=== PATIENT | female | born 1995 | race American Indian/Alaskan Native ===

== ENCOUNTER 2019-05-04 00:05 | Emergency (ER) | payer BC ==
[~2019-05-04] VITALS: Ht 167.6 cm; Wt 87.0 kg
[2019-05-04 00:24] VITALS: BP 128/74
[2019-05-04] MEDS ORDERED: BACITRACIN ZINC OINT UDPKT TOP ONE (00:30)
== END 2019-05-04 02:00 | disposition home or self-care (01) ==
LOC: ER 00:05
DX: S80.212A Abrasion, left knee, initial encounter (principal); S80.211A Abrasion, right knee, initial encounter; Y35.893A Legal intervention involving other specified means, suspect injured, initial encounter; Y93.89 Activity, other specified; Y92.89 Other specified places as the place of occurrence of the external cause
CPT/HCPCS: 99283

== ENCOUNTER 2019-05-04 07:06 | Inpatient (IN) | payer BC, MEDICAID ==
[~2019-05-04] VITALS: Ht 167.6 cm; Wt 100.8 kg
[2019-05-04 09:04] LABS: BASOPHILS % 0.5 % (0.0-2.0); HEMATOCRIT. 36.4 % (36.0-48.0); HEMOGLOBIN. 12.2 g/dL (12.0-16.0); LYMPHOCYTES % 9.2 % (20.0-50.0); MEAN CORPUSCULAR HEMOGLOBIN 28.4 pg (28.0-32.0); MEAN CORPUSCULAR VOLUME 84.5 fL (81.0-99.0); MEAN PLATELET VOLUME 8.4 fl (7.4-10.4); MONOCYTES % 7.8 % (2.0-8.0); NEUTROPHILS % 82.5 % (40.0-76.0); PLATELET 333 x1000/uL (130-400); RED CELL DISTRIBUTION WIDTH 13.3 % (11.6-14.6)
[2019-05-04 09:14] LABS: CHLORIDE 108 mEq/L (98-107)
[2019-05-04 09:18] LABS: ETHANOL BLOOD < 10 mg/dL
[2019-05-04 09:53] LABS: CLARITY URINE TURBID (CLEAR); COLOR URINE YELLOW (YELLOW); KETONES URINE 1+ (NEGATIVE); LEUKOCYTE ESTERASE URINE NEGATIVE (NEGATIVE); NITRITE URINE NEGATIVE (NEGATIVE); OCCULT BLOOD URINE 3+ (NEGATIVE); PROTEIN URINE 2+ (NEGATIVE); SPECIFIC GRAVITY URINE 1.028 (1.005-1.030); UROBILINOGEN URINE 0.2 E.U./dL (0.2-1.0)
[2019-05-04 10:04] LABS: *AMPHETAMINES SCREEN URINE NEGATIVE (NEGATIVE); *BARBITURATES SCREEN URINE NEGATIVE (NEGATIVE); *BENZODIAZEPINES SCREEN URINE NEGATIVE (NEGATIVE); *COCAINE SCREEN URINE NEGATIVE (NEGATIVE); METHADONE URINE SCREEN NEGATIVE (NEGATIVE)
[2019-05-04 10:05] LABS: OPIATES URINE SCREEN NEGATIVE (NEGATIVE); PHENCYCLIDINE URINE SCREEN NEGATIVE (NEGATIVE)
[2019-05-04 10:07] LABS: CANNABINOID URINE SCREEN PRESUMTIVE POSITIVE (NEGATIVE)
[2019-05-04] MEDS ORDERED: LORAZEPAM 1MG TABLET PO ONE (14:15)
[2019-05-05] MEDS ORDERED: SODIUM CHLORIDE 0.9% 1,000 ML IV ONE ×4 (03:32→18:55)
[2019-05-05 18:28] LABS: CREATINE KINASE 26829 IU/L (26-192)
[2019-05-05 22:58] LABS: CLARITY URINE CLEAR (CLEAR); COLOR URINE YELLOW (YELLOW); KETONES URINE NEGATIVE (NEGATIVE); LEUKOCYTE ESTERASE URINE NEGATIVE (NEGATIVE); NITRITE URINE NEGATIVE (NEGATIVE); OCCULT BLOOD URINE NEGATIVE (NEGATIVE); PH URINE 6.5 (4.5-8.0); PROTEIN URINE NEGATIVE (NEGATIVE); SPECIFIC GRAVITY URINE 1.002 (1.005-1.030); UROBILINOGEN URINE 0.2 E.U./dL (0.2-1.0)
[2019-05-06] MEDS ORDERED: CLONIDINE 0.1MG TABLET PO PRN
[2019-05-06] MEDS ORDERED: ENOXAPARIN 40MG/0.4ML SYR SUBCUT SCH
[2019-05-06] MEDS ORDERED: HYDROCODONE/ACETAMINOPHEN 10/325MG TABLET PO PRN
[2019-05-06] MEDS ORDERED: ONDANSETRON HCL 4MG/2ML INJ IV PRN
[2019-05-06] MEDS ORDERED: GUAIFENESIN 200MG/10ML SUGAR FREE UDC PO PRN
[2019-05-06] MEDS ORDERED: HYDRALAZINE 20MG/ML VIAL IV PRN
[2019-05-06] MEDS ORDERED: ACETAMINOPHEN 325MG TABLET PO PRN
[2019-05-06] MEDS ORDERED: DIPHENHYDRAMINE 50MG/ML VIAL IV PRN
[2019-05-06] MEDS ORDERED: MAGNESIUM/ALUMINUM HYDROXIDE/SIMETHICONE 30ML UDC PO PRN
[2019-05-06] MEDS ORDERED: IPRATROPIUM/ALBUTEROL 0.5-3(2.5)MG/3ML NEB HHN PRN
[2019-05-06] MEDS ORDERED: DOCUSATE SODIUM 100MG CAPSULE PO PRN
[2019-05-06] MEDS ORDERED: MORPHINE SULFATE 2 MG/ML CPJ (NOT FOR IM USE) IV PRN
[2019-05-06] MEDS: SODIUM CHLORIDE 0.9% 1,000 ML IV SCH ×3 (02:04→15:50)
[2019-05-06] MEDS: SODIUM CHLORIDE 0.9% INJ 3ML FLUSH IVF SCH ×2 (06:00→15:30)
[2019-05-06 21:57] LABS: BASOPHILS % 0.6 % (0.0-2.0); EOSINOPHILS % 0.7 % (0.0-5.0); HEMATOCRIT. 35.7 % (36.0-48.0); HEMOGLOBIN. 12.2 g/dL (12.0-16.0); LYMPHOCYTES % 22.4 % (20.0-50.0); MEAN CORPUSCULAR HEMOGLOBIN 29.3 pg (28.0-32.0); MEAN CORPUSCULAR VOLUME 85.4 fL (81.0-99.0); MEAN PLATELET VOLUME 8.5 fl (7.4-10.4); NEUTROPHILS % 69.3 % (40.0-76.0); PLATELET 300 x1000/uL (130-400); RED BLOOD CELL COUNT 4.18 mill/uL (4.2-5.4); RED CELL DISTRIBUTION WIDTH 13.4 % (11.6-14.6)
[2019-05-06 22:05] LABS: CHLORIDE 109 mEq/L (98-107)
[2019-05-06 22:16] LABS: CREATINE KINASE MB FRACTION 22.1 ng/mL (0.5-3.6)
[2019-05-06 23:07] LABS: CREATINE KINASE 11191 IU/L (26-192)
[2019-05-07] MEDS ORDERED: SODIUM CHLORIDE 0.9% 1,000 ML IV ONE ×2 (03:30)
[2019-05-07 10:40] VITALS: BP 147/80
[2019-05-07 11:20] VITALS: BP 147/80
[2019-05-07] MEDS ORDERED: ENOXAPARIN 40MG/0.4ML SYR SUBCUT SCH (12:00)
[2019-05-07] MEDS ORDERED: POTASSIUM CHLORIDE 20MEQ TABLET SR PO NR (12:00)
[2019-05-07] MEDS ORDERED: HYDRALAZINE 10 MG in SODIUM CHLORIDE 0.9% 49.5 ML IV PRN (12:15)
[2019-05-07] MEDS: LORAZEPAM 2MG/ML CPJ IV PRN (12:26)
[2019-05-07 13:30] VITALS: BP 136/96
[2019-05-07] MEDS: SODIUM CHLORIDE 0.9% 1,000 ML IV SCH ×2 (15:50→23:12)
[2019-05-07 16:00] VITALS: BP 133/83
[2019-05-07 20:00] VITALS: BP 138/88
[2019-05-07] MEDS: SODIUM CHLORIDE 0.9% INJ 3ML FLUSH IVF SCH (21:35)
[2019-05-08] VITALS: BP 131/87
[2019-05-08 04:00] VITALS: BP 144/82
[2019-05-08] MEDS: SODIUM CHLORIDE 0.9% INJ 3ML FLUSH IVF SCH ×3 (05:21→22:00)
[2019-05-08] MEDS: SODIUM CHLORIDE 0.9% 1,000 ML IV SCH ×3 (07:55→23:30)
[2019-05-08 08:00] VITALS: BP 126/79
[2019-05-08 08:36] LABS: CHLORIDE 107 mEq/L (98-107)
[2019-05-08 08:47] LABS: CREATINE KINASE MB FRACTION 4.5 ng/mL (0.5-3.6)
[2019-05-08 08:57] LABS: CREATINE KINASE 2990 IU/L (26-192)
[2019-05-08] MEDS: ENOXAPARIN 30MG/0.3ML SYR SUBCUT SCH ×3 (09:00→21:00)
[2019-05-08] MEDS: OLANZAPINE 5MG TABLET PO SCH ×3 (10:00→17:00)
[2019-05-08] MEDS ORDERED: CEFTRIAXONE 1 G PREMIX 50 ML IV SCH (11:00)
[2019-05-08 12:00] VITALS: BP 120/81
[2019-05-08] MEDS ORDERED: CEFTRIAXONE 1 G PREMIX 50 ML IV NR (12:00)
[2019-05-08] MEDS ORDERED: CEFTRIAXONE 1,000 MG in DEXTROSE 5% WATER 50 ML IV SCH (13:00)
[2019-05-08 16:00] VITALS: BP 131/78
[2019-05-08 18:11] LABS: CLARITY URINE CLEAR (CLEAR); COLOR URINE YELLOW (YELLOW); KETONES URINE NEGATIVE (NEGATIVE); LEUKOCYTE ESTERASE URINE NEGATIVE (NEGATIVE); NITRITE URINE NEGATIVE (NEGATIVE); OCCULT BLOOD URINE 1+ (NEGATIVE); PROTEIN URINE NEGATIVE (NEGATIVE); SPECIFIC GRAVITY URINE 1.005 (1.005-1.030); UROBILINOGEN URINE 0.2 E.U./dL (0.2-1.0)
[2019-05-08 20:00] VITALS: BP 127/72
[2019-05-09] MEDS: LORAZEPAM 1MG TABLET PO PRN (01:03)
[2019-05-09] MEDS: SODIUM CHLORIDE 0.9% INJ 3ML FLUSH IVF SCH ×2 (05:40→21:53)
[2019-05-09 08:00] VITALS: BP 116/65
[2019-05-09] MEDS ORDERED: LORAZEPAM 2MG/ML CPJ IM PRN (08:00)
[2019-05-09] MEDS: ENOXAPARIN 30MG/0.3ML SYR SUBCUT SCH ×2 (09:00→20:28)
[2019-05-09] MEDS: OLANZAPINE 5MG TABLET PO SCH ×2 (09:00→17:00)
[2019-05-09] MEDS ORDERED: HEPARIN 100 UNITS/1 ML VIAL IVF PRN (11:30)
[2019-05-09 12:00] VITALS: BP 112/61
[2019-05-09 15:22] LABS: BASOPHILS % 0.4 % (0.0-2.0); EOSINOPHILS % 1.3 % (0.0-5.0); HEMATOCRIT. 35.8 % (36.0-48.0); LYMPHOCYTES % 15.9 % (20.0-50.0); MEAN CORPUSCULAR HEMOGLOBIN 28.5 pg (28.0-32.0); MEAN PLATELET VOLUME 8.5 fl (7.4-10.4); MONOCYTES % 5.9 % (2.0-8.0); NEUTROPHILS % 76.5 % (40.0-76.0); PLATELET 310 x1000/uL (130-400); RED CELL DISTRIBUTION WIDTH 13.2 % (11.6-14.6)
[2019-05-09] MEDS: CEFTRIAXONE 1,000 MG in DEXTROSE 5% WATER 50 ML IV SCH (15:28)
[2019-05-09 16:00] VITALS: BP 113/70
[2019-05-09 18:15] LABS: CHLORIDE 102 mEq/L (98-107)
[2019-05-09 18:23] LABS: HCG SCREEN NEGATIVE
[2019-05-09 18:24] LABS: CREATINE KINASE MB FRACTION 3.5 ng/mL (0.5-3.6)
[2019-05-09 18:34] LABS: CREATINE KINASE 1074 IU/L (26-192)
[2019-05-09 20:00] VITALS: BP 121/71
[2019-05-09] MEDS: SODIUM CHLORIDE 0.9% 1,000 ML IV SCH (20:30)
[2019-05-10] MEDS: SODIUM CHLORIDE 0.9% 1,000 ML IV SCH (07:50)
[2019-05-10] MEDS: OLANZAPINE 5MG TABLET PO SCH ×2 (08:52→17:13)
[2019-05-10] MEDS: ENOXAPARIN 30MG/0.3ML SYR SUBCUT SCH ×2 (08:53→21:00)
[2019-05-10] MEDS: LORAZEPAM 2MG/ML CPJ IV PRN ×2 (11:12→15:40)
[2019-05-10] MEDS: CEFTRIAXONE 1,000 MG in DEXTROSE 5% WATER 50 ML IV SCH (15:40)
[2019-05-11 07:00] VITALS: BP 111/59
[2019-05-11] MEDS: SODIUM CHLORIDE 0.9% 1,000 ML IV SCH ×2 (07:50→17:15)
[2019-05-11 08:00] VITALS: BP 104/51
[2019-05-11] MEDS: OLANZAPINE 5MG TABLET PO SCH ×3 (09:00→17:15)
[2019-05-11] MEDS: ENOXAPARIN 30MG/0.3ML SYR SUBCUT SCH ×3 (09:00→22:56)
[2019-05-11 14:00] VITALS: BP 94/55
[2019-05-11] MEDS: SODIUM CHLORIDE 0.9% INJ 3ML FLUSH IVF SCH (14:52)
[2019-05-11] MEDS: LORAZEPAM 1MG TABLET PO PRN (14:53)
[2019-05-11] MEDS ORDERED: CEFTRIAXONE 1 G PREMIX 50 ML IV SCH (15:00)
[2019-05-11 16:00] VITALS: BP 115/58
[2019-05-11 18:11] LABS: BASOPHILS % 0.9 % (0.0-2.0); EOSINOPHILS % 6.4 % (0.0-5.0); HEMATOCRIT. 35.1 % (36.0-48.0); HEMOGLOBIN. 11.6 g/dL (12.0-16.0); LYMPHOCYTES % 32.2 % (20.0-50.0); MEAN CORPUSCULAR HEMOGLOBIN 28.7 pg (28.0-32.0); MEAN CORPUSCULAR VOLUME 86.9 fL (81.0-99.0); MEAN PLATELET VOLUME 8.9 fl (7.4-10.4); MONOCYTES % 10.2 % (2.0-8.0); NEUTROPHILS % 50.3 % (40.0-76.0); PLATELET 251 x1000/uL (130-400); RED BLOOD CELL COUNT 4.04 mill/uL (4.2-5.4); RED CELL DISTRIBUTION WIDTH 13.5 % (11.6-14.6)
[2019-05-11 18:34] LABS: CHLORIDE 107 mEq/L (98-107)
[2019-05-11 18:43] LABS: CREATINE KINASE MB FRACTION 1.5 ng/mL (0.5-3.6)
[2019-05-11 18:45] LABS: CREATINE KINASE 313 IU/L (26-192)
[2019-05-11 19:09] LABS: HEPATITIS B SURFACE ANTIGEN NEGATIVE
[2019-05-11 19:39] LABS: HEPATITIS A AB IGM NEGATIVE (NEGATIVE)
[2019-05-11 20:00] VITALS: BP 107/52
[2019-05-12] VITALS: BP 112/52
[2019-05-12 00:42] VITALS: BP 116/72
== END 2019-05-12 01:12 | DRG 689 ==
LOC: ER 07:06 → EDBEDREQ 05-05 19:08 → EDBEDREQTM 05-05 22:31 → EDBEDREQ 05-05 22:31 → 6EST 05-07 07:05 → ENRESERV 05-07 07:33 → CANRESERV 05-07 07:33 → ENRESERV 05-07 10:17 → 6EST 05-07 11:54
PROVIDERS: ADMIT Internal Medicine; ATTEND Internal Medicine
PROC: 02HV33Z Insertion of Infusion Device into Superior Vena Cava, Percutaneous Approach (ICD-10-PCS; principal; 2019-05-09)
PROC: B5181ZA Fluoroscopy of Superior Vena Cava using Low Osmolar Contrast, Guidance (ICD-10-PCS; 2019-05-09)
DX: N39.0 Urinary tract infection, site not specified (principal); G93.41 Metabolic encephalopathy; M62.82 Rhabdomyolysis; F99 Mental disorder, not otherwise specified; E87.6 Hypokalemia; F41.9 Anxiety disorder, unspecified; S80.212A Abrasion, left knee, initial encounter; S80.211A Abrasion, right knee, initial encounter; S90.812A Abrasion, left foot, initial encounter; S90.811A Abrasion, right foot, initial encounter; X58.XXXA Exposure to other specified factors, initial encounter; Y93.89 Activity, other specified; Y92.89 Other specified places as the place of occurrence of the external cause; Y99.8 Other external cause status
CPT/HCPCS: 36415; 36573; 71045; 76937; 80048; 80053; 80305; 80320; 81003; 81025; 82140; 82550; 82553; 84484; 84703; 85025; 86705; 86709; 86803; 87340; 99283; 99285; C1725; J0696; J1200; J1650; J2060; J7030; J7060; G0480